=== PATIENT | male | born 1980 | race Caucasian/White ===

== ENCOUNTER 2018-06-18 08:33 | Emergency (ER) | payer OTHER ==
[~2018-06-18] VITALS: Ht 177.8 cm; Wt 75.7 kg
[2018-06-18 09:00] VITALS: BP 136/78
--- NOTE | 2018-06-18 09:33 | PHYS DOC ---
Past History Past Medical History: No Pertinent History Additional Past Surgical Histo: Left ankle ORIF Smoking: Greater than 1 pack/day Additional Smoking Information: Unable to currently smoke at facility Alcohol Use: None Drug Use: None Adult General Chief Complaint Chief Complaint: PENIS PROBLEM HPI HPI Patient is a 38 year old male who presents with swollen penis after he states that he "stretched this morning" with an erection and heard something "pop". Denies any physical activity at time of injury. He presents from [facility]. He states that at 5:30 this morning he woke up with an erection, he rolled over to stretch and he thinks that the "pressure" popped something in his penis. He states he is unable to urinate currently but that he had urinated before the incident at around 4 this morning. He took Tylenol 30 minutes after it happened, this has not relieved pain. The pain as a 7 out of 10. Last PO was dinner last night except for some sips of water with the Tylenol this AM at 0830. Review of Systems Review of Systems Constitutional: Denies fever or chills [] Eyes: Denies change in visual acuity, redness, or eye pain [] HENT: Denies nasal congestion or sore throat [] Respiratory: Denies cough or shortness of breath [] Cardiovascular: Denies chest pain or palpitations GI: Denies abdominal pain, nausea, vomiting, or diarrhea [] : Admits to inability to urinate and swelling/pain of penis Integument: Denies rash; reports bruising to penis Neurologic: Denies headache, focal weakness or sensory changes [] Complete systems were reviewed and found to be within normal limits, except as documented in this note. Allergies Allergies Allergies Coded Allergies Type Severity Reaction Last Updated Verified No Known Drug Allergies 06/18/18 No Physical Exam Physical Exam Constitutional: Well developed, well nourished, no acute distress, non-toxic appearance. [] HENT: Normocephalic, atraumatic, nose normal. [] Eyes: Conjunctiva normal, no discharge. [] Neck: Normal range of motion, no tenderness. [] Cardiovascular: Heart rate regular rhythm, no murmur [] Lungs & Thorax: Bilateral breath sounds clear to auscultation. [] Abdomen: Soft, no tenderness. : Penis is uniformly ecchymotic and markedly swollen to shaft, tender to palpation, deviation to left Skin: Warm, dry, no erythema, no rash; penile ecchymosis as above Extremities: No tenderness, no edema. [] Neurologic: Alert and oriented X 3, no focal deficits noted. [] Psychologic: Affect normal, judgement normal, mood normal. [] Current Patient Data Vital Signs Vital Signs Date Time Temp Pulse Resp B/P (MAP) Pulse Ox O2 Delivery O2 Flow Rate FiO2 06/18/18 09:00 98.2 57 20 136/78 (97) 100 Room Air EKG EKG [] Radiology/Procedures Radiology/Procedures [] Course & Med Decision Making Course & Med Decision Making Pertinent Labs and Imaging studies reviewed. (See chart for details) Patient is a 38-year-old male who presented with a swollen and painful penis. Physical exam consistent for penile fracture. Patient continues to deny any physical activity besides "stretching" prior to symptoms. Bladder scan was ordered to assess urinary retention, secondary to the patient stating his inability to urinate. The bladder scan showed 60 mL residual volume. A UA was ordered, but patient still unable. Labs obtained and posted to chart. Patient will be kept nothing by mouth due to possibility of surgical intervention later today. Patient requiring transfer for urological care. Discussed case with Dr. Tariq ( urology) at [facility] who is in agreement with surgical consultation and plans for surgery today. Discussed with Dr. Newby (hospitalist ) who is in agreement with admission to [facility]. Discussed findings and plan with patient, who acknowledge understanding and agreement. Dragon Disclaimer Dragon Disclaimer This electronic medical record was generated, in whole or in part, using a voice recognition dictation system. Departure Departure: Impression: Primary Impression: Penile fracture Disposition: XFER OTHER ([facility]) Admitting Physician: Monae Newby Condition: STABLE Referrals: PCP,NO (PCP) Problem Qualifiers Primary Impression: Penile fracture Encounter type: initial encounter Qualified Codes: S39.840A - Fracture of corpus cavernosum penis, initial encounter LAURA ARECHIGA DO Jun 18, 2018 09:33
[2018-06-18 09:54] LABS: BASO # 0.1 x10^3/uL (0.0-0.2); BASO % 1 % (0-3); EOS # 0.1 x10^3/uL (0.0-0.7); EOS % 1 % (0-3); HEMATOCRIT 39.2 % (39.0-53.0); HEMOGLOBIN 13.5 g/dL (13.0-17.5); LYMPH # 1.8 x10^3/uL (1.0-4.8); LYMPH % 19 % (24-48); MEAN CORPUSCULAR HEMOGLOBIN 33 pg (25-35); MEAN CORPUSCULAR HGB CONC 34 g/dL (31-37); MEAN CORPUSCULAR VOLUME 94 fL (79-100); MONO # 0.7 x10^3/uL (0.0-1.1); MONO % 8 % (0-9); NEUT # 6.8 x10^3uL (1.8-7.7); NEUT % 73 % (31-73); PLATELET COUNT 315 x10^3/uL (140-400); RED BLOOD COUNT 4.16 x10^6/uL (4.30-5.70); RED CELL DISTRIBUTION WIDTH 12.9 % (11.5-14.5); WHITE BLOOD COUNT 9.3 x10^3/uL (4.0-11.0)
[2018-06-18 10:07] LABS: ALBUMIN/GLOBULIN RATIO 1.1 (1.0-1.7); CALCIUM 8.8 mg/dL (8.5-10.1); CREATININE 1.4 mg/dL (0.7-1.3); GFR 56.4; MAGNESIUM 1.9 mg/dL (1.8-2.4); POTASSIUM 4.3 mmol/L (3.5-5.1); TOTAL BILIRUBIN 0.6 mg/dL (0.2-1.0); TOTAL PROTEIN 7.7 g/dL (6.4-8.2)
== END 2018-06-18 10:20 | disposition short-term general hospital (02) ==
LOC: ER 08:33
DX: S39.840A Fracture of corpus cavernosum penis, initial encounter (principal); F17.200 Nicotine dependence, unspecified, uncomplicated; X50.9XXA Other and unspecified overexertion or strenuous movements or postures, initial encounter; Y93.89 Activity, other specified; Y92.89 Other specified places as the place of occurrence of the external cause; Y99.8 Other external cause status
CPT/HCPCS: 36415; 80053; 83735; 85025; 85610; 85730; 96374; 99285; J3010